=== PATIENT | male | born 1955 | race Caucasian/White ===

== ENCOUNTER 2017-02-19 11:27 | Emergency (ER) | payer MEDICAID ==
[~2017-02-19] VITALS: Ht 185.4 cm; Wt 113.4 kg
[~2017-02-19 11:27] MED LIST: /ATOR40TA PO; /LORA10TA PO; /MUPI30CR EXT; /TERBI25T PO; /WARF25TA PO; ACET500T PO; AMLO5TAB2 PO; ASPI325T; ASPI325T PO; ASPI81TA7 PO; CETI10TA3 PO; CLAR5CHW; CLON2TAB PO; CYMB1CAP PO; CYMB60CA3 PO; DEXI60CA PO; DEXILANT PO; DRIS50002 PO; DULO20CA; FETZ1CAP2 PO; FLUTISP; JANU25TA PO; KLON1TAB PO; KLON2TAB PO; LISI5TAB PO; LISIPOW PO; METF500T PO; MOBI15TA PO; MUCI600T34 PO; MUCINEX; NASAL SPRAY; NICOTINE PATCH TOP; OXYC1TAB23 PO; PERCOCET PO; PRIL20CA; RANI300C PO; RYZOLT; SERO400T PO; SERO400T3 PO; SILD50TA PO; SIMV20TA2; SPIRIVA INH; TRAM50TA2; TRAZ100T; TRAZ100T2 PO; TRAZ150T14 PO; TRAZ300T2; TRAZADONE PO; TYLE325T5 PO; januvia PO; lipitor
[2017-02-19 14:30] LABS: MEAN CORPUSCULAR HEMOGLOBIN 32.4 pg (27.0-33.0); MEAN CORPUSCULAR VOLUME 92.7 fl (80.0-96.0); RED CELL DISTRIBUTION WIDTH 12.3 % (11.5-14.5); WHITE BLOOD COUNT 7.2 K/mm3 (4.0-10.0)
[2017-02-19 14:57] LABS: ALBUMIN 4.2 GM/DL (3.2-5.2); ALBUMIN/GLOBULIN RATIO 1.56 (1.00-1.93); ALKALINE PHOSPHATASE 91 U/L (45-117); ALT/SGPT 53 U/L (12-78); ANION GAP 8 MEQ/L (8-16); AST/SGOT 26 U/L (15-37); BILIRUBIN,DIRECT 0.1 MG/DL (0.0-0.2); BILIRUBIN,TOTAL 0.4 MG/DL (0.2-1.0); BLOOD UREA NITROGEN 9 MG/DL (7-18); CALCIUM LEVEL 8.6 MG/DL (8.5-10.1); CARBON DIOXIDE LEVEL 25 MEQ/L (21-32); CHLORIDE LEVEL 110 MEQ/L (98-107); GLOMERULAR FILTRATION RATE > 60.0 (>56); GLUCOSE, FASTING 74 MG/DL (70-105); POTASSIUM SERUM 3.8 MEQ/L (3.5-5.1); SODIUM LEVEL 143 MEQ/L (136-145); TOTAL PROTEIN 6.9 GM/DL (6.4-8.2)
[2017-02-19 15:45] VITALS: BP 162/99
== END 2017-02-19 15:47 | disposition home or self-care (01) ==
LOC: M ED 15:09
DX: R19.7 Diarrhea, unspecified (principal)

== ENCOUNTER → 2018-01-10 | Day surgery (SDC) | payer OTHER ==
[~2018-01-10] MED LIST changes: -/ATOR40TA PO; -/LORA10TA PO; -/MUPI30CR EXT; -/TERBI25T PO; -/WARF25TA PO; -ACET500T PO; -AMLO5TAB2 PO; -ASPI325T; -ASPI325T PO; -ASPI81TA7 PO; -CETI10TA3 PO; -CLAR5CHW; -CLON2TAB PO; -CYMB1CAP PO; -CYMB60CA3 PO; -DEXI60CA PO; -DEXILANT PO; -DRIS50002 PO; -DULO20CA; -FETZ1CAP2 PO; -FLUTISP; -JANU25TA PO; -KLON1TAB PO; -KLON2TAB PO; +LIDOCAINE 2% INJ 100 MG/5 ML SDV (FOR ANES.) As Ordered; -LISI5TAB PO; -LISIPOW PO; -METF500T PO; -MOBI15TA PO; -MUCI600T34 PO; -MUCINEX; -NASAL SPRAY; -NICOTINE PATCH TOP; -OXYC1TAB23 PO; -PERCOCET PO; -PRIL20CA; +PROPOFOL 200 MG/20 ML VIAL As Ordered; -RANI300C PO; -RYZOLT; -SERO400T PO; -SERO400T3 PO; -SILD50TA PO; -SIMV20TA2; -SPIRIVA INH; -TRAM50TA2; -TRAZ100T; -TRAZ100T2 PO; -TRAZ150T14 PO; -TRAZ300T2; -TRAZADONE PO; -TYLE325T5 PO; -januvia PO; -lipitor
[2018-01-10] MEDS: NS 1,000 ML IV (07:27)
== END | disposition home or self-care (01) ==
LOC: M OPP 07:03
DX: K22.70 Barrett's esophagus without dysplasia (principal); K22.8 Other specified diseases of esophagus; E11.9 Type 2 diabetes mellitus without complications; I10 Essential (primary) hypertension; E78.5 Hyperlipidemia, unspecified; F31.9 Bipolar disorder, unspecified; Z79.84 Long term (current) use of oral hypoglycemic drugs; Z79.899 Other long term (current) drug therapy; Z91.030 Bee allergy status; Z88.8 Allergy status to other drugs, medicaments and biological substances; Z87.891 Personal history of nicotine dependence
CPT/HCPCS: 43239

== ENCOUNTER → 2021-12-04 | Outpatient (CLI) | payer OTHER ==
[~2021-12-04] MED LIST changes: +ACET500T PO; +AMLO5TAB2 PO; +ASPI325T; +ASPI325T PO; +ASPI81TA7 PO; +BACT2CRE14 EXT; +CETI10TA3 PO; +CLAR5CHW; +CLON2TAB PO; +COUM1TAB18 PO; +CYMB1CAP PO; +CYMB1CAP4; +CYMB60CA4 PO; +DEXI60CA PO; +DEXI60CA2 PO; +DEXILANT PO; +DRIS50003 PO; +FETZ1CAP2 PO; +FLUT1SPR2; +JANU25TA PO; +KLON1TAB PO; +KLON2TAB PO; +LAMI1TAB6 PO; -LIDOCAINE 2% INJ 100 MG/5 ML SDV (FOR ANES.) As Ordered; +LIPI1TAB2 PO; +LISI5TAB PO; +LISIPOW PO; +LORA-385 PO; +METF500T13 PO; +MOBI15TA PO; +MUCI600T34 PO; +MUCINEX; +NASAL SPRAY; +NICOTINE PATCH TOP; +OMEP40CA4 PO; +OXYC1TAB23 PO; +PRIL20CA; -PROPOFOL 200 MG/20 ML VIAL As Ordered; +RANI300C PO; +RYZOLT; +SERO400T PO; +SERO400T3 PO; +SILD50TA PO; +SIMV20TA2; +SPIRIVA INH; +TRAM50TA2; +TRAZ100T; +TRAZ100T2 PO; +TRAZ1TAB14 PO; +TRAZ300T2; +TRAZADONE PO; +TYLE325T5 PO; +januvia PO; +lipitor
== END ==
LOC: M LABSMTC 13:28
PROVIDERS: ATTEND Pediatrics
DX: Z11.52 Encounter for screening for COVID-19 (principal)

== ENCOUNTER → 2022-07-06 | Outpatient (CLI) | payer OTHER, MEDICAID ==
[2022-07-06 07:18] LABS: BASO % 0.5 % (0.0-1.0); EOS # 0.1 10^3/uL (0.0-0.5); EOS % 1.5 % (0.0-3.0); HEMATOCRIT 45.1 % (42.0-52.0); LYMPH # 2.4 10^3/uL (1.5-5.0); MEAN CORPUSCULAR HEMOGLOBIN 31.4 pg (27.0-33.0); MEAN CORPUSCULAR HGB CONC 33.3 g/dl (32.0-36.5); MEAN CORPUSCULAR VOLUME 94.5 fl (80.0-96.0); MONO # 0.7 10^3/uL (0.0-0.8); MONO % 10.9 % (2.0-8.0); NEUTROPHILS # 3.3 10^3/uL (1.5-8.5); NEUTROPHILS % 49.9 % (36.0-66.0); PLATELET COUNT, AUTOMATED 255 10^3/uL (150-450); RED BLOOD COUNT 4.77 10^6/uL (4.30-6.10); WHITE BLOOD COUNT 6.5 10^3/uL (4.0-10.0)
[2022-07-06 08:12] LABS: ERYTHROCYTE SEDIMENTATION RATE 7 mm/hr (0-20)
== END ==
LOC: M LAB 06:18
PROVIDERS: ATTEND Physician Assistant
DX: Z96.651 Presence of right artificial knee joint (principal)

== ENCOUNTER 2022-07-18 11:04 | Emergency (ER) | payer MEDICAID, OTHER ==
[~2022-07-18] VITALS: Ht 185.4 cm; Wt 109.0 kg
[2022-07-18] MEDS ORDERED: QUET400T42 (11:20)
[2022-07-18] MEDS ORDERED: TIZA2TA (11:20)
[2022-07-18 15:04] VITALS: BP 149/88
== END 2022-07-18 15:18 | disposition home or self-care (01) ==
LOC: M ED 11:04
DX: M71.21 Synovial cyst of popliteal space [Baker], right knee (principal); M79.604 Pain in right leg; F17.200 Nicotine dependence, unspecified, uncomplicated; Z91.030 Bee allergy status; Z88.8 Allergy status to other drugs, medicaments and biological substances; Z79.899 Other long term (current) drug therapy; Z79.84 Long term (current) use of oral hypoglycemic drugs; F25.1 Schizoaffective disorder, depressive type; F40.01 Agoraphobia with panic disorder

== ENCOUNTER → 2022-07-25 | Outpatient (CLI) | payer OTHER, MEDICAID ==
[~2022-07-25] MED LIST changes: +QUET400T42; +TIZA2TA
== END ==
LOC: M SOG 08:19
PROVIDERS: ATTEND Orthopaedic Surgery
DX: M25.561 Pain in right knee (principal)

== ENCOUNTER → 2022-08-10 | Outpatient (CLI) | payer OTHER, MEDICAID | LOC: M RAD 08:05 | PROVIDERS: ATTEND Physician Assistant | DX: M25.561 Pain in right knee (principal) | CPT/HCPCS: 78315; A9503 ==

== ENCOUNTER → 2022-09-10 | Outpatient (CLI) | payer OTHER, MEDICARE, MEDICAID | LOC: M PAIN 08:30 | PROVIDERS: ATTEND Nurse Practitioner Family | DX: M51.16 Intervertebral disc disorders with radiculopathy, lumbar region (principal); F32.A Depression, unspecified; F41.0 Panic disorder [episodic paroxysmal anxiety]; G47.00 Insomnia, unspecified; E78.5 Hyperlipidemia, unspecified; E78.1 Pure hyperglyceridemia; J45.909 Unspecified asthma, uncomplicated; E11.9 Type 2 diabetes mellitus without complications; M25.561 Pain in right knee; I10 Essential (primary) hypertension; J44.9 Chronic obstructive pulmonary disease, unspecified; N52.9 Male erectile dysfunction, unspecified; K22.70 Barrett's esophagus without dysplasia; M25.511 Pain in right shoulder; F17.210 Nicotine dependence, cigarettes, uncomplicated; Z79.84 Long term (current) use of oral hypoglycemic drugs; Z79.899 Other long term (current) drug therapy; Z88.8 Allergy status to other drugs, medicaments and biological substances; Z91.030 Bee allergy status; Z96.651 Presence of right artificial knee joint ==

== ENCOUNTER → 2022-10-03 | Outpatient (CLI) | payer OTHER, MEDICAID | LOC: M PLAIMG 06:52 | PROVIDERS: ATTEND Nurse Practitioner Family | DX: M51.16 Intervertebral disc disorders with radiculopathy, lumbar region (principal) ==

== ENCOUNTER → 2022-10-22 | Outpatient (CLI) | payer OTHER, MEDICAID, MEDICARE | LOC: M PAIN 09:00 | PROVIDERS: ATTEND Nurse Practitioner Family | DX: M51.16 Intervertebral disc disorders with radiculopathy, lumbar region (principal); F32.A Depression, unspecified; F41.0 Panic disorder [episodic paroxysmal anxiety]; G47.00 Insomnia, unspecified; E78.2 Mixed hyperlipidemia; J45.909 Unspecified asthma, uncomplicated; E11.43 Type 2 diabetes mellitus with diabetic autonomic (poly)neuropathy; M25.561 Pain in right knee; I10 Essential (primary) hypertension; J44.9 Chronic obstructive pulmonary disease, unspecified; N52.9 Male erectile dysfunction, unspecified; K22.70 Barrett's esophagus without dysplasia; K31.84 Gastroparesis; M25.511 Pain in right shoulder; F17.210 Nicotine dependence, cigarettes, uncomplicated; Z79.84 Long term (current) use of oral hypoglycemic drugs; Z79.899 Other long term (current) drug therapy; Z88.8 Allergy status to other drugs, medicaments and biological substances; Z91.030 Bee allergy status ==

== ENCOUNTER → 2022-12-04 | Outpatient (CLI) | payer OTHER, MEDICAID | LOC: M PAIN 09:15 | PROVIDERS: ATTEND Nurse Practitioner Family | DX: M51.16 Intervertebral disc disorders with radiculopathy, lumbar region (principal); G89.29 Other chronic pain; E11.9 Type 2 diabetes mellitus without complications; J44.9 Chronic obstructive pulmonary disease, unspecified; I10 Essential (primary) hypertension; F17.210 Nicotine dependence, cigarettes, uncomplicated; Z86.59 Personal history of other mental and behavioral disorders; Z88.8 Allergy status to other drugs, medicaments and biological substances; Z91.030 Bee allergy status; Z79.84 Long term (current) use of oral hypoglycemic drugs; Z79.899 Other long term (current) drug therapy ==

== ENCOUNTER → 2023-02-01 | Outpatient (CLI) | payer OTHER, MEDICAID | LOC: M PAIN 09:30 | PROVIDERS: ATTEND Nurse Practitioner Family | DX: M51.16 Intervertebral disc disorders with radiculopathy, lumbar region (principal); F32.A Depression, unspecified; F41.0 Panic disorder [episodic paroxysmal anxiety]; G47.00 Insomnia, unspecified; E78.2 Mixed hyperlipidemia; J45.909 Unspecified asthma, uncomplicated; E11.9 Type 2 diabetes mellitus without complications; M25.561 Pain in right knee; I10 Essential (primary) hypertension; J44.9 Chronic obstructive pulmonary disease, unspecified; N52.9 Male erectile dysfunction, unspecified; K22.70 Barrett's esophagus without dysplasia; M54.50 Low back pain, unspecified; G89.29 Other chronic pain; M25.511 Pain in right shoulder; F17.210 Nicotine dependence, cigarettes, uncomplicated; Z79.84 Long term (current) use of oral hypoglycemic drugs; Z79.899 Other long term (current) drug therapy; Z88.8 Allergy status to other drugs, medicaments and biological substances; Z91.030 Bee allergy status ==

== ENCOUNTER → 2023-04-09 | Outpatient (CLI) | payer OTHER, MEDICAID | LOC: M PAIN 09:15 | PROVIDERS: ATTEND Nurse Practitioner Family | DX: M51.16 Intervertebral disc disorders with radiculopathy, lumbar region (principal); F32.A Depression, unspecified; F41.0 Panic disorder [episodic paroxysmal anxiety]; E78.2 Mixed hyperlipidemia; J45.909 Unspecified asthma, uncomplicated; E11.9 Type 2 diabetes mellitus without complications; I10 Essential (primary) hypertension; J44.9 Chronic obstructive pulmonary disease, unspecified; K22.70 Barrett's esophagus without dysplasia; M54.50 Low back pain, unspecified; F17.210 Nicotine dependence, cigarettes, uncomplicated; Z79.84 Long term (current) use of oral hypoglycemic drugs; Z79.899 Other long term (current) drug therapy; Z88.8 Allergy status to other drugs, medicaments and biological substances; Z91.030 Bee allergy status ==

== ENCOUNTER 2023-08-15 16:50 | Emergency (ER) | payer MEDICAID, MEDICARE, OTHER ==
[~2023-08-15] VITALS: Ht 182.9 cm; Wt 94.7 kg
[2023-08-15] MEDS ORDERED: SEMA0.257 SQ (17:17)
[2023-08-15] MEDS ORDERED: CLON1TAB8 (17:17)
[2023-08-15] MEDS ORDERED: LISI30TA4 PO (17:17)
[2023-08-15] MEDS ORDERED: POTA-151 PO (17:17)
[2023-08-15] MEDS ORDERED: SILD20TA50 PO (17:17)
[2023-08-15] MEDS ORDERED: METO1TAB7 PO (17:17)
[2023-08-15] MEDS ORDERED: JARD1TAB3 PO (17:17)
[2023-08-15] MEDS ORDERED: NOXI1TAB PO (17:17)
[2023-08-15] MEDS ORDERED: ISOVUE-370 76% 100ML VIAL As Ordered ONE (18:55)
[2023-08-15 19:14] LABS: BASO % 0.3 % (0.0-1.0); EOS # 0.1 10^3/uL (0.0-0.5); EOS % 1.1 % (0.0-3.0); HEMATOCRIT 45.4 % (42.0-52.0); HEMOGLOBIN 15.5 g/dl (13.5-17.5); LYMPH # 2.8 10^3/uL (1.5-5.0); LYMPH % 38.5 % (24.0-44.0); MEAN CORPUSCULAR HEMOGLOBIN 32.3 pg (27.0-33.0); MEAN CORPUSCULAR HGB CONC 34.1 g/dl (32.0-36.5); MEAN CORPUSCULAR VOLUME 94.6 fl (80.0-96.0); MONO # 0.9 10^3/uL (0.0-0.8); MONO % 11.8 % (2.0-8.0); NEUTROPHILS # 3.5 10^3/uL (1.5-8.5); PLATELET COUNT, AUTOMATED 253 10^3/uL (150-450); WHITE BLOOD COUNT 7.3 10^3/uL (4.0-10.0)
[2023-08-15 19:24] LABS: ALBUMIN 3.9 G/DL (3.2-5.2); BILIRUBIN,DIRECT 0.2 MG/DL (<0.4); BILIRUBIN,TOTAL 0.5 MG/DL (0.3-1.2); TOTAL PROTEIN 6.7 G/DL (5.7-8.2)
[2023-08-15 19:55] VITALS: BP 138/73; TEMP 97.2; O2SAT 98
== END 2023-08-15 19:56 | disposition home or self-care (01) ==
LOC: M ED 16:50
DX: T88.7XXA Unspecified adverse effect of drug or medicament, initial encounter (principal); E11.9 Type 2 diabetes mellitus without complications; I10 Essential (primary) hypertension; K21.9 Gastro-esophageal reflux disease without esophagitis; M54.50 Low back pain, unspecified; F32.A Depression, unspecified; F17.200 Nicotine dependence, unspecified, uncomplicated; Z88.8 Allergy status to other drugs, medicaments and biological substances; Z91.030 Bee allergy status; Z79.02 Long term (current) use of antithrombotics/antiplatelets; Z79.811 Long term (current) use of aromatase inhibitors; Z79.4 Long term (current) use of insulin; Z79.899 Other long term (current) drug therapy
CPT/HCPCS: 36415; 74177; 80047; 80076; 83690; 85025; 99284; Q9967

== ENCOUNTER → 2024-01-27 | Outpatient (CLI) | payer MEDICARE, MEDICAID ==
[~2024-01-27] MED LIST changes: +ATOR40TA75 PO; +CLON1TAB8 PO; +JARD1TAB3 PO; +LISI30TA4 PO; +METO1TAB7 PO; +NOXI1TAB PO; +POTA-151 PO; +SEMA0.257 SQ; +SILD20TA50 PO; +VITA100093 PO
[2024-01-27 10:58] LABS: BASO % 0.3 % (0.0-1.0); EOS # 0.1 10^3/uL (0.0-0.5); EOS % 1.3 % (0.0-3.0); HEMATOCRIT 45.7 % (42.0-52.0); HEMOGLOBIN 15.2 g/dl (13.5-17.5); LYMPH # 2.7 10^3/uL (1.5-5.0); LYMPH % 39.3 % (24.0-44.0); MEAN CORPUSCULAR HEMOGLOBIN 31.7 pg (27.0-33.0); MEAN CORPUSCULAR HGB CONC 33.3 g/dl (32.0-36.5); MEAN CORPUSCULAR VOLUME 95.4 fl (80.0-96.0); MONO # 0.6 10^3/uL (0.0-0.8); MONO % 8.9 % (2.0-8.0); NEUTROPHILS # 3.4 10^3/uL (1.5-8.5); NEUTROPHILS % 49.9 % (36.0-66.0); PLATELET COUNT, AUTOMATED 241 10^3/uL (150-450); RED BLOOD COUNT 4.79 10^6/uL (4.30-6.10); WHITE BLOOD COUNT 6.8 10^3/uL (4.0-10.0)
[2024-01-27 11:12] LABS: ALKALINE PHOSPHATASE 100 U/L (46-116); ALT/SGPT 48 U/L (7.0-40); AST/SGOT 29 U/L (<34); BILIRUBIN,TOTAL 0.6 MG/DL (0.3-1.2); BLOOD UREA NITROGEN 24 MG/DL (9-23); CALCIUM LEVEL 9.2 MG/DL (8.3-10.6); CARBON DIOXIDE LEVEL 26 MMOL/L (20-31); CHLORIDE LEVEL 106 MMOL/L (98-107); CHOLESTEROL LEVEL 107 MG/DL (<200); CHOLESTEROL RISK RATIO 3.18 (<5); CREATININE FOR GFR 1.09 MG/DL (0.70-1.30); GLOMERULAR FILTRATION RATE > 60.0 (>49); GLUCOSE, FASTING 138 MG/DL (74-106); HDL CHOLESTEROL 33.6 MG/DL (>40); LDL CHOLESTEROL 59.6 MG/DL (<100); MAGNESIUM LEVEL 1.6 MG/DL (1.8-2.4); NON-HDL-C 73.4 MG/DL; POTASSIUM SERUM 4.6 MMOL/L (3.5-5.1); SODIUM LEVEL 137 MMOL/L (136-145); THYROID STIMULATING HORMONE 2.513 uIU/ML (0.55-4.78); TOTAL PROTEIN 6.6 G/DL (5.7-8.2); TRIGLYCERIDES LEVEL 69 MG/DL (<150)
[2024-01-27 11:14] LABS: HEMOGLOBIN A1c 6.2 % (4.0-6.0)
[2024-01-27 11:34] LABS: CREATININE, URINE 65.9 MG/DL; MALB URINE SIEMENS < 3.0 MG/L; MAU/CREAT RATIO 4.5 MCG/MG (0.0-30.0)
== END ==
LOC: M PLALAB 07:47
PROVIDERS: ATTEND Nurse Practitioner Family
DX: E11.9 Type 2 diabetes mellitus without complications (principal); E78.2 Mixed hyperlipidemia; I10 Essential (primary) hypertension; Z12.5 Encounter for screening for malignant neoplasm of prostate
CPT/HCPCS: 36415; 80053; 80061; 82043; 83036; 83735; 84439; 84443; 85025; G0103

== ENCOUNTER 2024-01-29 11:04 | Day surgery (SDC) | payer MEDICAID, MEDICARE, OTHER ==
[~2024-01-29] VITALS: Ht 185.4 cm; Wt 96.6 kg
[2024-01-29] MEDS: NS 1,000 ML IV ONE (11:25)
[2024-01-29] MEDS ORDERED: propofoL 200 MG/20 ML VIAL As Ordered ONE (12:20)
[2024-01-29] MEDS ORDERED: LIDOCAINE 2% 100MG/5ML SDV (FOR ANES.) As Ordered ONE (12:21)
[2024-01-29 13:09] VITALS: TEMP 98.3
[2024-01-29 13:30] VITALS: BP 138/68; O2SAT 98
== END 2024-01-29 13:32 | disposition home or self-care (01) ==
LOC: M OPP 11:04
PROVIDERS: ATTEND Internal Medicine Gastroenterology
DX: Z12.11 Encounter for screening for malignant neoplasm of colon (principal); Z12.12 Encounter for screening for malignant neoplasm of rectum; D12.6 Benign neoplasm of colon, unspecified; K21.00 Gastro-esophageal reflux disease with esophagitis, without bleeding; K57.30 Diverticulosis of large intestine without perforation or abscess without bleeding; K64.0 First degree hemorrhoids; Z87.19 Personal history of other diseases of the digestive system; E11.9 Type 2 diabetes mellitus without complications; I10 Essential (primary) hypertension; E78.00 Pure hypercholesterolemia, unspecified; Z79.899 Other long term (current) drug therapy; Z79.84 Long term (current) use of oral hypoglycemic drugs; F17.210 Nicotine dependence, cigarettes, uncomplicated; Z88.8 Allergy status to other drugs, medicaments and biological substances

== ENCOUNTER → 2024-04-29 | Outpatient (CLI) | payer MEDICARE | LOC: M RAD 11:49 | PROVIDERS: ATTEND Family Medicine | DX: R20.0 Anesthesia of skin (principal); I70.201 Unspecified atherosclerosis of native arteries of extremities, right leg ==

== ENCOUNTER → 2024-07-28 | Outpatient (CLI) | payer MEDICARE, MEDICAID ==
[2024-07-28 11:18] LABS: BASO % 0.5 % (0.0-1.0); EOS # 0.1 10^3/uL (0.0-0.5); EOS % 1.3 % (0.0-3.0); HEMATOCRIT 50.1 % (42.0-52.0); HEMOGLOBIN 16.3 g/dl (13.5-17.5); LYMPH # 2.6 10^3/uL (1.5-5.0); LYMPH % 30.5 % (24.0-44.0); MEAN CORPUSCULAR HGB CONC 32.5 g/dl (32.0-36.5); MEAN CORPUSCULAR VOLUME 98.4 fl (80.0-96.0); MONO # 0.7 10^3/uL (0.0-0.8); MONO % 8.1 % (2.0-8.0); NEUTROPHILS % 59.2 % (36.0-66.0); PLATELET COUNT, AUTOMATED 238 10^3/uL (150-450); RED BLOOD COUNT 5.09 10^6/uL (4.30-6.10); WHITE BLOOD COUNT 8.4 10^3/uL (4.0-10.0)
[2024-07-28 11:30] LABS: HEMOGLOBIN A1c 6.2 % (4.0-6.0)
[2024-07-28 11:49] LABS: ALBUMIN 4.1 G/DL (3.2-5.2); ALKALINE PHOSPHATASE 122 U/L (46-116); ALT/SGPT 49 U/L (7.0-40); AST/SGOT 27 U/L (<34); BILIRUBIN,TOTAL 0.5 MG/DL (0.3-1.2); BLOOD UREA NITROGEN 29 MG/DL (9-23); CALCIUM LEVEL 9.7 MG/DL (8.3-10.6); CARBON DIOXIDE LEVEL 27 MMOL/L (20-31); CHLORIDE LEVEL 105 MMOL/L (98-107); CHOLESTEROL LEVEL 127 MG/DL (<200); CHOLESTEROL RISK RATIO 3.99 (<5); CREATININE FOR GFR 1.13 MG/DL (0.70-1.30); GLOMERULAR FILTRATION RATE > 60.0 (>49); GLUCOSE, FASTING 151 MG/DL (74-106); HDL CHOLESTEROL 31.8 MG/DL (>40); LDL CHOLESTEROL 60.2 MG/DL (<100); MAGNESIUM LEVEL 1.8 MG/DL (1.8-2.4); NON-HDL-C 95.2 MG/DL; POTASSIUM SERUM 4.8 MMOL/L (3.5-5.1); SODIUM LEVEL 139 MMOL/L (136-145); TOTAL PROTEIN 7.1 G/DL (5.7-8.2); TRIGLYCERIDES LEVEL 175 MG/DL (<150)
[2024-07-28 11:51] LABS: CREATININE, URINE 75.9 MG/DL; MALB URINE SIEMENS < 3.0 MG/L; MAU/CREAT RATIO 3.9 MCG/MG (0.0-30.0)
[2024-07-28 11:55] LABS: TOTAL 25(OH) VITAMIN D 38.7 NG/ML (20.0-100.0)
== END ==
LOC: M PLALAB 07:51
PROVIDERS: ATTEND Nurse Practitioner Family
DX: E78.2 Mixed hyperlipidemia (principal); E11.9 Type 2 diabetes mellitus without complications; E55.9 Vitamin D deficiency, unspecified; I10 Essential (primary) hypertension

== ENCOUNTER → 2024-09-24 | Outpatient (CLI) | payer MEDICARE, MEDICAID | LOC: M SOG 07:23 | PROVIDERS: ATTEND Orthopaedic Surgery | DX: M54.17 Radiculopathy, lumbosacral region (principal); M48.07 Spinal stenosis, lumbosacral region; M25.561 Pain in right knee ==

== ENCOUNTER 2024-10-27 08:11 | Outpatient (RCR) | payer MEDICARE, MEDICAID | END 2024-10-31 | LOC: M PT 08:11 | PROVIDERS: ATTEND Orthopaedic Surgery | DX: M25.561 Pain in right knee (principal); Z96.651 Presence of right artificial knee joint; M47.27 Other spondylosis with radiculopathy, lumbosacral region ==

== ENCOUNTER 2024-11-19 08:28 | Outpatient (RCR) | payer MEDICARE, MEDICAID | END 2024-12-01 | LOC: M PT 08:28 | PROVIDERS: ATTEND Orthopaedic Surgery | DX: M25.561 Pain in right knee (principal); M47.27 Other spondylosis with radiculopathy, lumbosacral region ==

== ENCOUNTER → 2024-11-19 | Outpatient (CLI) | payer MEDICARE, MEDICAID | LOC: M EKG 09:09 | PROVIDERS: ATTEND Internal Medicine Cardiovascular Disease | DX: I45.3 Trifascicular block (principal) ==

== ENCOUNTER → 2024-12-24 | Outpatient (CLI) | payer MEDICARE, MEDICAID | LOC: M PLAIMG 07:55 | PROVIDERS: ATTEND Internal Medicine Cardiovascular Disease | DX: J44.9 Chronic obstructive pulmonary disease, unspecified (principal) ==

== ENCOUNTER → 2025-01-27 | Outpatient (CLI) | payer MEDICARE, MEDICAID ==
[2025-01-27 15:04] LABS: FOLATE > 24.00 NG/ML (>5.4); VITAMIN B12 LEVEL 1475 PG/ML (211-911)
[2025-01-27 15:18] LABS: HEMOGLOBIN A1c 6.6 % (4.0-6.0)
[2025-01-28 07:57] LABS: T P ELECTROPHORESIS SO 7.5 g/dL (6.1-8.1)
== END ==
LOC: M LAB 13:16
PROVIDERS: ATTEND Student in an Organized Health Care Education/Training Program
DX: E11.9 Type 2 diabetes mellitus without complications (principal)

== ENCOUNTER → 2025-02-04 | Outpatient (CLI) | payer MEDICARE, MEDICAID ==
[2025-02-04 11:13] LABS: BASO % 0.3 % (0.0-1.0); EOS # 0.1 10^3/uL (0.0-0.5); EOS % 0.9 % (0.0-3.0); HEMATOCRIT 47.1 % (42.0-52.0); LYMPH % 30.8 % (24.0-44.0); MEAN CORPUSCULAR HEMOGLOBIN 31.9 pg (27.0-33.0); MEAN CORPUSCULAR VOLUME 93.8 fl (80.0-96.0); MONO # 0.6 10^3/uL (0.0-0.8); MONO % 9.4 % (2.0-8.0); NEUTROPHILS # 3.8 10^3/uL (1.5-8.5); NEUTROPHILS % 58.4 % (36.0-66.0); PLATELET COUNT, AUTOMATED 257 10^3/uL (150-450); RED BLOOD COUNT 5.02 10^6/uL (4.30-6.10); WHITE BLOOD COUNT 6.5 10^3/uL (4.0-10.0)
[2025-02-04 11:18] LABS: PSA SCREENING 1.38 NG/ML (< 4.00)
[2025-02-04 11:20] LABS: ALKALINE PHOSPHATASE 104 U/L (40-129); ALT/SGPT 60 U/L (7.0-40); AST/SGOT 28 U/L (<34); BILIRUBIN,TOTAL 0.5 MG/DL (0.3-1.2); BLOOD UREA NITROGEN 18 MG/DL (9-23); CALCIUM LEVEL 9.6 MG/DL (8.3-10.6); CARBON DIOXIDE LEVEL 23 MMOL/L (20-31); CHLORIDE LEVEL 109 MMOL/L (98-107); CHOLESTEROL LEVEL 126 MG/DL (<200); CHOLESTEROL RISK RATIO 3.88 (<5); CREATININE FOR GFR 1.03 MG/DL (0.70-1.30); GLOMERULAR FILTRATION RATE > 60.0 (>49); GLUCOSE, FASTING 140 MG/DL (74-106); HDL CHOLESTEROL 32.4 MG/DL (>40); LDL CHOLESTEROL 75.6 MG/DL (<100); MAGNESIUM LEVEL 1.8 MG/DL (1.8-2.4); NON-HDL-C 93.6 MG/DL; POTASSIUM SERUM 4.9 MMOL/L (3.5-5.1); SODIUM LEVEL 140 MMOL/L (136-145); TRIGLYCERIDES LEVEL 90 MG/DL (<150)
[2025-02-04 11:43] LABS: HEMOGLOBIN A1c 6.6 % (4.0-6.0)
[2025-02-11 17:32] LABS: ALPHA 2-MACROGLOBULINS,QN 310 mg/dL (106-279); ALT (SGPT) P5P 41 U/L (9-46); APOLIPOPROTEIN A-1 105 mg/dL (94-176); BILIRUBIN, TOTAL 0.3 mg/dL (0.2-1.2); FIBROSIS SCORE 0.53; FIBROSIS STAGE MODERATE FIBROSIS (F0); GGT 26 U/L (3-70); HAPTOGLOBIN 131 mg/dL (43-212); NECROINFLAM ACT GRADE MINIMAL ACTIVITY (A0); NECROINFLAM ACT SCORE 0.29
== END ==
LOC: M PLALAB 08:29
PROVIDERS: ATTEND Nurse Practitioner Family
DX: E11.9 Type 2 diabetes mellitus without complications (principal); Z12.5 Encounter for screening for malignant neoplasm of prostate; R79.89 Other specified abnormal findings of blood chemistry; E55.9 Vitamin D deficiency, unspecified; E83.42 Hypomagnesemia; E78.2 Mixed hyperlipidemia

== ENCOUNTER → 2025-03-02 | Outpatient (CLI) | payer MEDICARE, MEDICAID | LOC: M SOG 07:49 | PROVIDERS: ATTEND Orthopaedic Surgery | DX: M25.511 Pain in right shoulder (principal) ==

== ENCOUNTER 2025-03-15 11:45 | Emergency (ER) | payer MEDICARE ==
[~2025-03-15] VITALS: Ht 185.4 cm; Wt 104.6 kg
[2025-03-15 11:51] VITALS: BP 147/83; TEMP 97; O2SAT 96
== END 2025-03-15 13:28 | disposition left against medical advice (07) ==
LOC: M ED 11:45
DX: Z53.21 Procedure and treatment not carried out due to patient leaving prior to being seen by health care provider (principal)

== ENCOUNTER 2025-07-29 16:00 | Outpatient (RCR) | payer MEDICARE, OTHER | END 2025-08-01 | LOC: M PT 16:00 | PROVIDERS: ATTEND Orthopaedic Surgery Sports Medicine | DX: M25.561 Pain in right knee (principal) | CPT/HCPCS: 97110; 97161; G0283 ==

== ENCOUNTER 2025-08-25 08:30 | Outpatient (RCR) | payer MEDICARE, OTHER | END 2025-08-31 | LOC: M PT 08:30 | PROVIDERS: ATTEND Orthopaedic Surgery Sports Medicine | DX: M25.561 Pain in right knee (principal) ==

== ENCOUNTER 2025-09-01 08:30 | Outpatient (RCR) | payer MEDICARE, OTHER | END 2025-10-01 | LOC: M PT 08:30 | PROVIDERS: ATTEND Orthopaedic Surgery Sports Medicine | DX: M25.561 Pain in right knee (principal) ==

== ENCOUNTER → 2025-10-14 | Outpatient (CLI) | payer OTHER ==
[2025-10-14 10:35] LABS: BASO # 0.0 10^3/uL (0.0-0.2); BASO % 0.5 % (0.0-1.0); EOS # 0.1 10^3/uL (0.0-0.5); EOS % 1.2 % (0.0-3.0); LYMPH # 2.5 10^3/uL (1.5-5.0); LYMPH % 42.9 % (24.0-44.0); MONO # 0.5 10^3/uL (0.0-0.8); MONO % 9.1 % (2.0-8.0); NEUTROPHILS # 2.7 10^3/uL (1.5-8.5); NEUTROPHILS % 45.8 % (36.0-66.0); PLATELET COUNT, AUTOMATED 245 10^3/uL (150-450)
[2025-10-14 10:45] LABS: FREE T4 1.29 NG/DL (0.89-1.76)
[2025-10-14 10:47] LABS: ALT/SGPT 77.0 U/L (7.0-40); AST/SGOT 35.0 U/L (<34); CALCIUM LEVEL 9.8 MG/DL (8.3-10.6); CARBON DIOXIDE LEVEL 27.0 MMOL/L (20-31); CHLORIDE LEVEL 104.0 MMOL/L (98-107); CHOLESTEROL LEVEL 131.0 MG/DL (<200); CHOLESTEROL RISK RATIO 3.76 (<5); CREATININE FOR GFR 1.09 MG/DL (0.70-1.30); GLOMERULAR FILTRATION RATE 73.9 (>49); LDL CHOLESTEROL 75.2 MG/DL (<100); MAGNESIUM LEVEL 1.9 MG/DL (1.8-2.4); NON-HDL-C 96.2 MG/DL; POTASSIUM SERUM 5.1 MMOL/L (3.5-5.1); SODIUM LEVEL 141.0 MMOL/L (136-145); TRIGLYCERIDES LEVEL 105.0 MG/DL (<150)
[2025-10-14 11:08] LABS: CREATININE, URINE 78.9 MG/DL
[2025-10-14 11:09] LABS: MALB URINE SIEMENS < 3.0 MG/L
[2025-10-14 11:28] LABS: ESTIMATED AVERAGE GLUCOSE 154.0 MG/DL (60-110)
== END ==
LOC: M PLALAB 08:16
PROVIDERS: ATTEND Nurse Practitioner Family
DX: E55.9 Vitamin D deficiency, unspecified (principal); E78.2 Mixed hyperlipidemia; E11.9 Type 2 diabetes mellitus without complications; I10 Essential (primary) hypertension

== ENCOUNTER → 2025-11-17 | Outpatient (CLI) | payer OTHER, MEDICARE | LOC: M PLAIMG 08:41 | PROVIDERS: ATTEND Orthopaedic Surgery | DX: M25.511 Pain in right shoulder (principal); M25.512 Pain in left shoulder; M94.211 Chondromalacia, right shoulder; M25.411 Effusion, right shoulder; M75.01 Adhesive capsulitis of right shoulder; M19.012 Primary osteoarthritis, left shoulder; M75.02 Adhesive capsulitis of left shoulder ==